=== PATIENT | male | born 1995 | race Caucasian/White ===

== ENCOUNTER 2022-01-21 06:58 | Outpatient (CLI) | payer OTHER ==
[2022-01-21] MEDS ORDERED: GADOBUTROL 10 MMOL/10 ML VIAL ONE (08:49)
[2022-01-21] MEDS ORDERED: GADOBUTROL 10 MMOL/10 ML VIAL IVP ONE (16:51)
--- NOTE | 2022-01-21 16:55 | MRI Report ---
PROCEDURE: Brain W/WO INDICATIONS: CEREBRAL CYSTS CONTRAST: IV CONTRAST: Gadavist ml: 7.9 TECHNIQUE: Noncontrast axial T1 spin echo, axial T2 fast spin echo, sagittal and axial FLAIR, coronal T2 fast sp in echo, axial gradient echo, axial diffusion and ADC through the brain. After the administration of contrast, axial and coronal T1 spin echo with fat saturation through the brain. COMPARISON: None. FINDINGS: Image quality: Excellent. CSF spaces: Basal cisterns are patent. No extra-axial fluid collections. Ventricles are normal in size and shape. Brain: No midline shift. No intracranial bleeds or masses. No abnormal intracranial enhancement. There is cerebral volume loss for age. There is periventricular white matter chronic small vessel is chemic change. The brainstem appears normal. Diffusion-weighted images demonstrate no acute ischemi c insults. No chronic ischemic insults. Normal intravascular flow voids are present. Skull and face: Calvarial marrow is normal in signal. Orbits appear normal. Sinuses: Sinuses and mastoids appear clear. IMPRESSION: No significant cerebral cysts are seen on this study. No masses or abnormal enhancement can be seen. No findings of acute or subacute infarction are seen. Reviewed by: Murphy Baumann MD on 01/21/2022 3:53 PM JUAN R Approved by: Murphy Baumann MD on 01/21/2022 3:53 PM JUAN R Station ID: [id number]
== END 2022-01-21 06:59 | disposition home or self-care (01) ==
LOC: DI 06:58
PROVIDERS: ATTEND Student in an Organized Health Care Education/Training Program
DX: G93.0 Cerebral cysts (principal)
CPT/HCPCS: 70553; A9585

== ENCOUNTER 2023-02-25 08:14 | Outpatient (CLI) | payer OTHER ==
--- NOTE | 2023-02-25 13:28 | MRI Report ---
PROCEDURE: MRI brain with and without contrast INDICATIONS: CEREBRAL CYSTS CONTRAST: gadavist 8.6ml TECHNIQUE: Noncontrast axial T1 spin echo, axial T2 fast spin echo, sagittal and axial FLAIR, coronal T2 fast sp in echo, axial gradient echo, axial diffusion and ADC through the brain. After the administration of contrast, axial and coronal T1 spin echo with fat saturation through the brain. COMPARISON: None. FINDINGS: Image quality: Excellent. CSF spaces: Basal cisterns are patent. No extra-axial fluid collections. Ventricles are normal in size and shape. Brain: No midline shift. No intracranial bleeds or masses. No abnormal intracranial enhancement. There is normal cerebral and cerebellar volume, and good mejias-white matter distinction. The brainstem appears normal. Diffusion-weighted images demonstrate no acute infarcts. Normal intravascular flow voids are present. Skull and face: Prior left rectosigmoid craniotomy noted. Remainder the calvarium unremarkable Sinuses: Sinuses and mastoids appear clear. IMPRESSION: Unremarkable MRI brain with and without contrast status post left retrosigmoid craniotomy Reviewed by: Al Santana MD on 02/25/2023 12:27 PM AKDT Approved by: Al Santana MD on 02/25/2023 12:27 PM AKDT Station ID: [id number]
== END 2023-02-25 08:15 | disposition home or self-care (01) ==
LOC: DI 08:14
DX: G93.0 Cerebral cysts (principal)
CPT/HCPCS: 70553; A9585

== ENCOUNTER 2023-10-29 12:59 | Outpatient (CLI) | payer OTHER ==
--- NOTE | 2023-10-29 16:39 | MRI Report ---
PROCEDURE: Brain W/WO INDICATIONS: CEREBRAL CYST CONTRAST: clariscan 16.8ml TECHNIQUE: Noncontrast axial T1 spin echo, axial T2 fast spin echo, sagittal and axial FLAIR, coronal T2 fast sp in echo, axial gradient echo, axial diffusion and ADC through the brain. After the administration of contrast, axial and coronal T1 spin echo with fat saturation through the brain. COMPARISON: MRI brain 02/25/2023, 01/21/2022 FINDINGS: Image quality: Excellent. CSF spaces: Basal cisterns are patent. No extra-axial fluid collections. Ventricles are normal in size and shape. Brain: No midline shift. No intracranial bleeds or masses. No abnormal intracranial enhancement. There is cerebral volume loss for age. There is periventricular white matter chronic small vessel is chemic change. The brainstem appears normal. Diffusion-weighted images demonstrate no acute ischemi c insults. No chronic ischemic insults. Normal intravascular flow voids are present. Skull and face: Postsurgical changes reflecting left craniotomy are present. Sinuses: Sinuses and mastoids appear clear. IMPRESSION: Stable interval exam demonstrating no acute intercranial process. No visualized cerebral cyst. Reviewed by: Eugenia Moon MD on 10/29/2023 4:37 PM PST Approved by: Eugenia Moon MD on 10/29/2023 4:37 PM PST Station ID: [id number]
== END 2023-10-29 13:00 | disposition home or self-care (01) ==
LOC: DI 12:59
DX: G93.0 Cerebral cysts (principal)
CPT/HCPCS: 70553; A9575